=== PATIENT | male | born 1950 | race Caucasian/White ===

== ENCOUNTER 2016-06-16 13:51 | Emergency (ER) | payer OTHER ==
[2016-06-16] MEDS ORDERED: TETRACAINE HCL 0.5% OPH SOLN 2 ML OS ONE (14:14)
[2016-06-16] MEDS ORDERED: OXYCODONE-ACETAMINOPHEN 5-325 MG TABLET PO ONE (14:14)
[2016-06-16] MEDS ORDERED: ONDANSETRON 4 MG TAB.RAPDIS PO ONE (14:14)
--- NOTE | 2016-06-16 14:16 | ER Document Report ---
ED Medical Screen (RME) - General Chief Complaint: Eye Problem Stated Complaint: LEFT EYE IRRITATION, PAIN Time seen by provider: 14:15 Mode of Arrival: Ambulatory Information source: Patient Notes: 66-year-old male had something fly into his left eye when he was changing the belt on his riding lawnmower yesterday. It is very painful today. Questionable corneal defect at 6:00. TRAVEL OUTSIDE OF THE [place] IN LAST 30 DAYS: No Past Medical History - Past Medical History Cardiac Medical History: Reports: Hx Hypertension Renal/ Medical History: Denies: Hx Peritoneal Dialysis Physical Exam - Vital signs Vitals: Temp Pulse Resp BP Pulse Ox 98.2 F 60 18 161/82 H 97 06/16/16 14:09 06/16/16 14:09 06/16/16 14:09 06/16/16 14:09 06/16/16 14:09 Course - Vital Signs Vital signs: Temp Pulse Resp BP Pulse Ox 98.2 F 60 18 161/82 H 97 06/16/16 14:11 06/16/16 14:11 06/16/16 14:11 06/16/16 14:11 06/16/16 14:11
[2016-06-16] MEDS ORDERED: BESIFLOXACIN HCL 0.6% OPH SUSP 5 ML BOTTLE OS ONE (15:15)
[2016-06-16] MEDS ORDERED: KETOROLAC TROMETHAMINE 0.45% 4 DROP/0.4 ML DROPERETTE OS ONE (15:15)
--- NOTE | 2016-06-16 15:22 | ER Document Report ---
ED General - General Chief Complaint: Eye Problem Stated Complaint: LEFT EYE IRRITATION, PAIN Mode of Arrival: Ambulatory TRAVEL OUTSIDE OF THE [place] IN LAST 30 DAYS: No - HPI Patient complains to provider of: eye pain Onset: Yesterday Notes: Patient coming in states he would work on slow more was soft and hit him in left eye day prior to arrival. Patient states increased pain today. Denies contact use denies any other injuries. Past Medical History - General Information source: Patient - Social History Smoking Status: Current Every Day Smoker Family History: Reviewed & Not Pertinent - Past Medical History Cardiac Medical History: Reports: Hx Hypertension Renal/ Medical History: Denies: Hx Peritoneal Dialysis Surgical Hx: Negative Review of Systems - Review of Systems Constitutional: No symptoms reported EENT: Eye pain Cardiovascular: No symptoms reported Respiratory: No symptoms reported Gastrointestinal: No symptoms reported Genitourinary: No symptoms reported Male Genitourinary: No symptoms reported Musculoskeletal: No symptoms reported Skin: No symptoms reported Hematologic/Lymphatic: No symptoms reported Neurological/Psychological: No symptoms reported -: Yes All other systems reviewed and negative Physical Exam - Vital signs Vitals: Temp Pulse Resp BP Pulse Ox 98.2 F 60 18 161/82 H 97 06/16/16 14:09 06/16/16 14:09 06/16/16 14:09 06/16/16 14:09 06/16/16 14:09 Interpretation: Normal - General General appearance: Appears well, Alert - HEENT Head: Normocephalic, Atraumatic Eyes: Normal Conjunctiva: Normal Cornea: Normal Extraocular movements intact: Yes Eyelashes: Normal Pupils: PERRL Visual acuity- Right eye: 20/20 Visual acuity- Left eye: 20/20 Visual acuity- Both eyes: 20/20 Lids everted for exam: bilateral: Normal Anterior chamber: Normal Notes: Visual acuity perform by nurse using loli guide at [facility] - Respiratory Respiratory status: No respiratory distress Chest status: Nontender Breath sounds: Normal Chest palpation: Normal - Cardiovascular Rhythm: Regular Heart sounds: Normal auscultation Murmur: No - Abdominal Inspection: Normal Distension: No distension Bowel sounds: Normal Tenderness: Nontender Organomegaly: No organomegaly - Back Back: Normal, Nontender - Extremities General upper extremity: Normal inspection, Nontender, Normal color, Normal ROM , Normal temperature General lower extremity: Normal inspection, Nontender, Normal color, Normal ROM , Normal temperature, Normal weight bearing. No: Cathi's sign - Neurological Neuro grossly intact: Yes Cognition: Normal Orientation: AAOx4 Andreea Coma Scale Eye Opening: Spontaneous Eccles Coma Scale Verbal: Oriented Andreea Coma Scale Motor: Obeys Commands Andreea Coma Scale Total: 15 Speech: Normal Motor strength normal: LUE, RUE, LLE, RLE Sensory: Normal - Psychological Associated symptoms: Normal affect, Normal mood - Skin Skin Temperature: Warm Skin Moisture: Dry Skin Color: Normal Course - Re-evaluation Re-evalutation: 06/16/16 15:18 Patient with a corneal abrasion scleral abrasion. Patient has no foreign body no hyphema. Patient with good pain relief after tetracaine. Patient will be discharged home with Besivance and pain control. Patient to follow-up with ophthalmology. - Vital Signs Vital signs: Temp Pulse Resp BP Pulse Ox 98.2 F 60 18 161/82 H 97 06/16/16 14:11 06/16/16 14:11 06/16/16 14:11 06/16/16 14:11 06/16/16 14:11 Procedures - Eye Procedure Left Fluorescein applied: Left Slit lamp used: No Notes: 06/16/16 15:22 No foreign body seen no hyphema Eyes picture: 1 - Corneal abrasion 2 - Scleral abrasion Discharge - Discharge Clinical Impression: Corneal abrasion Qualifiers: Encounter type: initial encounter Laterality: left Qualified Code(s): S05.02XA - Injury of conjunctiva and corneal abrasion without foreign body, left eye, initial encounter Condition: Good Disposition: HOME, SELF-CARE Instructions: Corneal Abrasion ([facility]), Eyedrop Use ([facility]) Additional Instructions: Please use the antibiotic drops given to you here in the ER 1-2 drops in the left eye 3 times a day for 10 days Use of the medications as prescribed return to the ER symptoms worsen. Prescriptions: Hydrocodone Bit/Acetaminophen [Hydrocodon-Acetaminophen 5-325] 1 each PO Q6 #20 tablet Ketorolac Tromethamine 0.45% [Acuvail 0.45% Oph Soln 0.4 ml/Dropperette] 1 drop OD BID 5 Days Referrals: YUDY TILLEY MD [ACTIVE STAFF] - Follow up as needed
[2016-06-16 15:36] VITALS: BP 140/84
== END 2016-06-16 15:35 | disposition home or self-care (01) ==
LOC: ER 13:51
DX: S05.02XA Injury of conjunctiva and corneal abrasion without foreign body, left eye, initial encounter (principal); H57.12 Ocular pain, left eye; X58.XXXA Exposure to other specified factors, initial encounter
CPT/HCPCS: 99283; S0119

== ENCOUNTER 2016-10-28 13:38 | Observation (INO) | payer OTHER, MEDICARE ==
--- NOTE | 2016-10-28 14:12 | ER Document Report ---
ED Medical Screen (RME) - General Chief Complaint: Numbness Stated Complaint: POSSIBLE STROKE ALERT Time Seen by Provider: 10/28/16 13:59 TRAVEL OUTSIDE OF THE [place] IN LAST 30 DAYS: No - HPI Notes: 10/28/16 14:11 Numbness dizziness tingling placed left-sided weakness ongoing since 9:00 yesterday no new symptoms today Past Medical History - Past Medical History Cardiac Medical History: Reports: Hx Hypertension Renal/ Medical History: Denies: Hx Peritoneal Dialysis Review of Systems - Review of Systems Constitutional: Other - Tingling weakness Physical Exam - Vital signs Vitals: Temp Pulse Resp BP Pulse Ox 98.5 F 60 18 207/88 H 95 10/28/16 13:43 10/28/16 13:43 10/28/16 13:43 10/28/16 13:43 10/28/16 13:43 - Respiratory Respiratory status: No respiratory distress Chest status: Nontender Breath sounds: Normal Chest palpation: Normal Course - Re-evaluation Re-evalutation: 10/28/16 14:11 - Vital Signs Vital signs: Temp Pulse Resp BP Pulse Ox 98.5 F 60 18 207/88 H 95 10/28/16 13:43 10/28/16 13:43 10/28/16 13:43 10/28/16 13:43 10/28/16 13:43
[2016-10-28 14:30] LABS: ABSOLUTE BASOPHILS # (AUTO) 0.1 10^3/uL (0.0-0.2); ABSOLUTE EOSINOPHILS # (AUTO) 0.4 10^3/uL (0.0-0.6); ABSOLUTE LYMPHOCYTES (AUTO) 2.4 10^3/uL (0.5-4.7); ABSOLUTE MONOCYTES (AUTO) 0.6 10^3/uL (0.1-1.4); ABSOLUTE NEUT (AUTO) 4.9 10^3/uL (1.7-8.2); BASOPHILS % (AUTO) 1.1 % (0-2); EOSINOPHILS % (AUTO) 4.3 % (0-6); HEMATOCRIT 47.3 % (37.9-51.0); HEMOGLOBIN 15.8 g/dL (13.5-17.0); HGB HCT DIFFERENCE 0.1; LYMPHOCYTES % (AUTO) 28.3 % (13-45); MEAN CORPUSCULAR HEMOGLOBIN 31.6 pg (27.0-33.4); MEAN CORPUSCULAR HGB CONC 33.3 g/dL (32.0-36.0); MEAN CORPUSCULAR VOLUME 95 fl (80-97); RED BLOOD COUNT 4.98 10^6/uL (4.35-5.55); RED CELL DISTRIBUTION WIDTH 12.3 % (11.5-14.0); SEGMENTED NEUTROPHILS % (AUTO) 59.3 % (42-78); WHITE BLOOD COUNT 8.3 10^3/uL (4.0-10.5)
[2016-10-28 14:35] LABS: PROTHROMBIN TIME 11.7 SEC (11.4-15.4)
--- NOTE | 2016-10-28 14:44 | RADIOLOGY REPORT (SQ) ---
EXAM DESCRIPTION: CT HEAD WITHOUT COMPLETED DATE/TIME: 10/28/2016 2:35 pm REASON FOR STUDY: stroke? COMPARISON: None. TECHNIQUE: Axial images acquired through the brain without intravenous contrast. Images reviewed wi th bone, brain and subdural windows. Images stored on PACS. All CT scanners at this facility use dose modulation, iterative reconstruction, and/or weight based d osing when appropriate to reduce radiation dose to as low as reasonably achievable (ALARA). [facility]: Dose Right [facility]: CareDose [facility]: Dose Right [facility]: Teradose 4D [facility]: StockRadar RADIATION DOSE: 64.61 mGy. LIMITATIONS: None. FINDINGS: VENTRICLES: Normal size and contour. CEREBRUM: No masses. No hemorrhage. No midline shift. Normal rogers/white matter differentiation. N o evidence for acute infarction. CEREBELLUM: No masses. No hemorrhage. No alteration of density. No evidence for acute infarction. EXTRAAXIAL SPACES: No fluid collections. No masses. ORBITS AND GLOBE: No intra- or extraconal masses. Normal contour of globe without masses. CALVARIUM: No fracture. PARANASAL SINUSES: No fluid or mucosal thickening. SOFT TISSUES: No mass or hematoma. OTHER: No other significant finding. IMPRESSION: NORMAL BRAIN CT WITHOUT CONTRAST. TECHNICAL DOCUMENTATION: JOB ID: [id number] Quality ID # [id number]: Final reports with documentation of one or more dose reduction techniques (e.g., Au tomated exposure control, adjustment of the mA and/or kV according to patient size, use of iterative reconstruction technique) 2010 [employer]- All Rights Reserved
--- NOTE | 2016-10-28 14:44 | RADIOLOGY REPORT (SQ) ---
EXAM DESCRIPTION: CHEST PA/LAT COMPLETED DATE/TIME: 10/28/2016 2:37 pm REASON FOR STUDY: sob COMPARISON: None. EXAM PARAMETERS: NUMBER OF VIEWS: two views TECHNIQUE: Digital Frontal and Lateral radiographic views of the chest acquired. RADIATION DOSE: NA LIMITATIONS: none FINDINGS: LUNGS AND PLEURA: No opacities, masses or pneumothorax. No pleural effusion. MEDIASTINUM AND HILAR STRUCTURES: No masses or contour abnormalities. HEART AND VASCULAR STRUCTURES: Heart normal size. No evidence for failure. BONES: No acute findings. HARDWARE: None in the chest. OTHER: No other significant finding. IMPRESSION: NO SIGNIFICANT RADIOGRAPHIC FINDING IN THE CHEST. TECHNICAL DOCUMENTATION: JOB ID: [id number]- All Rights Reserved
[2016-10-28 14:46] LABS: ALANINE AMINOTRANSFERASE 26 U/L (21-72); ALKALINE PHOSPHATASE 90 U/L (38-126); ANION GAP 9 (5-19); ASPARTATE AMINO TRANSFERASE 24 U/L (17-59); BILIRUBIN,DIRECT 0.3 mg/dL (0.0-0.4); BILIRUBIN,TOTAL 0.8 mg/dL (0.2-1.3); BLOOD UREA NITROGEN 18 mg/dL (7-20); CALCIUM 9.7 mg/dL (8.4-10.2); CARBON DIOXIDE 27 mmol/L (22-30); CHLORIDE 104 mmol/L (98-107); CREATINE KINASE 39 U/L (55-170); CREATININE RESULT 1.02 mg/dL (0.52-1.25); GLUCOSE 91 mg/dL (75-110); POTASSIUM 4.8 mmol/L (3.6-5.0); SODIUM 139.7 mmol/L (137-145); TOTAL PROTEIN 7.3 g/dL (6.3-8.2)
[2016-10-28 14:58] LABS: CREATINE KINASE MB 0.93 ng/mL (<4.55)
[2016-10-28 14:59] LABS: TROPONIN I < 0.012 ng/mL
--- NOTE | 2016-10-28 15:14 | EKG REPORT ---
SEVERITY:- OTHERWISE NORMAL ECG - SINUS RHYTHM ATRIAL PREMATURE COMPLEX RIGHT AXIS DEVIATION : Confirmed by: Melissa Lanier 28-Oct-2016 15:14:12
--- NOTE | 2016-10-28 15:41 | ER Document Report ---
ED General - General Chief Complaint: Numbness Stated Complaint: POSSIBLE STROKE ALERT Time Seen by Provider: 10/28/16 13:59 Mode of Arrival: Ambulatory Information source: Patient Notes: This is a 66-year-old man with a history of hypertension, dyslipidemia, active smoking who presents to the emergency room with left facial numbness and left arm numbness. Patient denies any motor weakness. The onset of symptoms was 9 AM yesterday and has been constant TRAVEL OUTSIDE OF THE [place] IN LAST 30 DAYS: No - HPI Onset: Yesterday Onset/Duration: Sudden Quality of pain: No pain Severity: None Pain Level: Denies Associated symptoms: denies: Chest pain, Fever, Shortness of breath Exacerbated by: Denies Relieved by: Denies Similar symptoms previously: No Recently seen / treated by doctor: No - Related Data Allergies/Adverse Reactions: No Known Allergies Allergy (Unverified 10/28/16 15:46) Past Medical History - General Information source: Patient - Social History Smoking Status: Current Every Day Smoker Cigarette use (# per day): Yes - Half pack per day Chew tobacco use (# tins/day): - 30 Frequency of alcohol use: 3 beers a day Drug Abuse: None Lives with: Family Family History: Reviewed & Not Pertinent Patient has suicidal ideation: No Patient has homicidal ideation: No - Past Medical History Cardiac Medical History: Reports: Hx Hypercholesterolemia, Hx Hypertension Pulmonary Medical History: Reports: None EENT Medical History: Reports: None Neurological Medical History: Reports: None Endocrine Medical History: Reports: None Renal/ Medical History: Denies: Hx Peritoneal Dialysis Malignancy Medical History: Reports None GI Medical History: Reports: None Musculoskeltal Medical History: Reports None Skin Medical History: Reports None Psychiatric Medical History: Reports: None Traumatic Medical History: Reports: None Infectious Medical History: Reports: None Surgical Hx: Negative Review of Systems - Review of Systems Constitutional: denies: Chills, Fever EENT: No symptoms reported Cardiovascular: No symptoms reported Respiratory: No symptoms reported Gastrointestinal: No symptoms reported Genitourinary: No symptoms reported Male Genitourinary: No symptoms reported Musculoskeletal: No symptoms reported Skin: No symptoms reported Hematologic/Lymphatic: No symptoms reported Neurological/Psychological: See HPI Physical Exam - Vital signs Vitals: Temp Pulse Resp BP Pulse Ox 98.5 F 60 18 207/88 H 95 10/28/16 13:43 10/28/16 13:43 10/28/16 13:43 10/28/16 13:43 10/28/16 13:43 Notes: Physical exam: GENERAL: 6-year-old man, alert and oriented 3, no acute distress HEAD: Atraumatic, normocephalic. EYES: Pupils equal round and reactive to light, extraocular movements intact, sclera anicteric, conjunctiva are normal. ENT: TMs normal, nares patent, oropharynx clear without exudates. Moist mucous membranes. NECK: Normal range of motion, supple without lymphadenopathy or JVD. LUNGS: Breath sounds clear to auscultation bilaterally and equal. No wheezes rales or rhonchi. HEART: Regular rate and rhythm without murmurs, rubs or gallops. ABDOMEN: Soft, normoactive bowel sounds. No tenderness to palpation. No guarding, no rebound. No masses appreciated. EXTREMITIES: Normal range of motion, no pitting or edema. No clubbing or cyanosis. NEUROLOGICAL: Cranial nerves II through XII grossly intact for left facial numbness. Patient does have numbness to the left upper extremity. Motor is 5/ 5 upper and lower, cerebellar is good, reflexes are symmetrical, gait is normal. NIH is 1 PSYCH: Normal mood, normal affect. SKIN: Warm, Dry, normal turgor, no rashes or lesions noted. Course - Re-evaluation Re-evalutation: 10/28/16 15:40 Presents with symptoms of stroke. NIH is 1 based upon sensory disturbance. The patient does not meet criteria for thrombolysis based upon the low NIH score and an onset greater than 24 hours ago. - Vital Signs Vital signs: Temp Pulse Resp BP Pulse Ox 98.2 F 50 L 16 170/64 H 97 10/28/16 17:40 10/28/16 18:46 10/28/16 18:46 10/28/16 18:46 10/28/16 18:46 - Laboratory Result Diagrams: 10/28/16 14:20 10/28/16 14:20 Laboratory results interpreted by me: 10/28/16 14:20 Creatine Kinase 39 L - Diagnostic Test Radiology reviewed: Image reviewed, Reports reviewed - There is no acute stroke. Critical Care Note - Critical Care Note Total time excluding time spent on procedures (mins): 60 Discharge - Discharge Clinical Impression: CVA Condition: Stable Disposition: ADMITTED INPATIENT Unit Admitted: JOHN Garcia
[2016-10-28] MEDS ORDERED: ASPIRIN 81 MG TABLET, CHEWABLE PO ONE (15:46)
[2016-10-28] MEDS ORDERED: ACETAMINOPHEN 325 MG TABLET PO PRN (16:16)
[2016-10-28] MEDS ORDERED: ONDANSETRON 4 MG TAB.RAPDIS PO PRN (16:16)
[2016-10-28] MEDS ORDERED: AMLODIPINE BESYLATE 5 MG TABLET PO ONE (16:23)
--- NOTE | 2016-10-28 16:31 | PDOC H&P ---
History of Present Illness Admission Date/PCP: OLIVIA PATTERSON MD Patient complains of: Left arm and facial numbness since Saturday. History of Present Illness: YANCI JANE is a 66 year old male history of tobacco abuse and hypertension for which he does not take medications who presents with a 2 day history of left arm and facial numbness. Patient reports that he woke up Saturday morning around 10 AM and had some numbness in his left face and lips. It then progressed to involve his tongue and his entire left side of his face. He took aspirin at that time and did nothing. Patient had progression of his symptoms this morning when he woke up his left hand was numb but denies any weakness. He denies any visual changes. Denies any dysarthria or dysphasia. Denies any involvement of his lower extremities. Patient denies any pain in his neck. He denies any trauma. Denies any headache, fevers or chills. Patient had a head CT in the emergency room which was negative for any acute CVA. He is outside of the window for any type of thrombolytic therapy. Past Medical History Cardiac Medical History: Reports: Hypertension Pulmonary Medical History: Reports: None EENT Medical History: Reports: None Neurological Medical History: Reports: None Endocrine Medical History: Reports: None Renal/ Medical History: Reports: None Malignancy Medical History: Reports: Other - Prostate cancer with radiation therapy GI Medical History: Reports: None Skin Medical History: Reports: None Psychiatric Medical History: Reports: None Hematology: Reports: None Infectious Medical History: Reports: None Past Surgical History Past Surgical History: Reports: Other - Right hand surgery for traumatic injury Social History Information Source: Patient Lives with: Spouse/Significant other Smoking Status: Current Every Day Smoker Frequency of Alcohol Use: Social Hx Recreational Drug Use: No Drugs: None Hx Prescription Drug Abuse: No - Advance Directive Resuscitation Status: Full Code Surrogate healthcare decision maker:: His Family History Family History: Father at age 75 with an aneurysm of the brain. Mother in her 70s from COPD Parental Family History Reviewed: Yes Children Family History Reviewed: No Sibling(s) Family History Reviewed.: No Medication/Allergy Home Medications: Cephalexin Monohydrate [Keflex 500 mg Capsule] 500 mg PO QID #40 capsule Oxycodone HCl/Acetaminophen [Percocet 5-325 mg Tablet] 1 - 2 tab PO ASDIR PRN # 25 tablet 12/15/15 Hydrocodone Bit/Acetaminophen [Hydrocodon-Acetaminophen 5-325] 1 each PO Q6 #20 tablet 06/16/16 Ketorolac Tromethamine 0.45% [Acuvail 0.45% Oph Soln 0.4 ml/Dropperette] 1 drop OD BID 5 Days 06/16/16 Allergies/Adverse Reactions: No Known Allergies Allergy (Unverified 10/28/16 15:46) Review of Systems Constitutional: ABSENT: chills, fever(s), headache(s), weight gain, weight loss Eyes: ABSENT: visual disturbances Ears: ABSENT: hearing changes Cardiovascular: ABSENT: chest pain, dyspnea on exertion, edema, orthropnea, palpitations Respiratory: ABSENT: cough, hemoptysis Gastrointestinal: ABSENT: abdominal pain, constipation, diarrhea, hematemesis, hematochezia, nausea, vomiting Genitourinary: ABSENT: dysuria, hematuria Musculoskeletal: ABSENT: joint swelling Integumentary: ABSENT: rash, wounds Neurological: PRESENT: as per HPI Psychiatric: ABSENT: anxiety, depression Endocrine: ABSENT: cold intolerance, heat intolerance, polydipsia, polyuria Hematologic/Lymphatic: ABSENT: easy bleeding, easy bruising Physical Exam Vital Signs: Temp Pulse Resp BP Pulse Ox 98.5 F 60 18 207/88 H 98 10/28/16 13:44 10/28/16 14:00 10/28/16 14:00 10/28/16 14:00 10/28/16 14:22 Intake & Output 10/27/16 10/28/16 10/29/16 06:59 06:59 06:59 Weight 92.3 kg General appearance: PRESENT: no acute distress, well-developed, well-nourished Head exam: PRESENT: atraumatic, normocephalic Eye exam: PRESENT: conjunctiva pink, EOMI, PERRLA. ABSENT: scleral icterus Ear exam: PRESENT: normal external ear exam Mouth exam: PRESENT: moist, tongue midline Neck exam: ABSENT: carotid bruit, JVD, lymphadenopathy, thyromegaly Respiratory exam: PRESENT: clear to auscultation dena. ABSENT: rales, rhonchi, wheezes Cardiovascular exam: PRESENT: RRR. ABSENT: diastolic murmur, rubs, systolic murmur Pulses: PRESENT: normal dorsalis pedis pul Vascular exam: PRESENT: normal capillary refill GI/Abdominal exam: PRESENT: normal bowel sounds, soft. ABSENT: distended, guarding, mass, organolmegaly, rebound, tenderness Rectal exam: PRESENT: deferred Extremities exam: ABSENT: calf tenderness, clubbing, pedal edema Neurological exam: PRESENT: alert, awake, oriented to person, oriented to place , oriented to time, oriented to situation, CN II-XII grossly intact, motor sensory deficit - Patient has decreased light touch in the left face and left arm. Psychiatric exam: PRESENT: appropriate affect, normal mood Skin exam: PRESENT: dry, intact, warm. ABSENT: cyanosis, rash Results Laboratory Results: 10/28/16 14:20 10/28/16 14:20 10/28/16 10/28/16 14:20 14:20 WBC 8.3 RBC 4.98 Hgb 15.8 Hct 47.3 MCV 95 MCH 31.6 MCHC 33.3 RDW 12.3 Plt Count 283 Seg Neutrophils % 59.3 Lymphocytes % 28.3 Monocytes % 7.0 Eosinophils % 4.3 Basophils % 1.1 Absolute Neutrophils 4.9 Absolute Lymphocytes 2.4 Absolute Monocytes 0.6 Absolute Eosinophils 0.4 Absolute Basophils 0.1 Sodium 139.7 Potassium 4.8 Chloride 104 Carbon Dioxide 27 Anion Gap 9 BUN 18 Creatinine 1.02 Est GFR ( Amer) > 60 Est GFR (Non-Af Amer) > 60 Glucose 91 Calcium 9.7 Total Bilirubin 0.8 AST 24 ALT 26 Alkaline Phosphatase 90 Total Protein 7.3 Albumin 4.0 10/28/16 10/28/16 14:20 14:20 Creatine Kinase 39 L CK-MB (CK-2) 0.93 Troponin I < 0.012 Impressions: Head CT 10/28/16 14:00 IMPRESSION: NORMAL BRAIN CT WITHOUT CONTRAST. Chest X-Ray 10/28/16 14:03 IMPRESSION: NO SIGNIFICANT RADIOGRAPHIC FINDING IN THE CHEST. Assessment & Plan - Diagnosis (1) CVA (cerebral vascular accident) Is this a current diagnosis for this admission?: YesPlan: Patient has had symptoms for greater than 24 hours. We will continue with the aspirin that he started with his symptoms started. Will obtain an MRI, carotid Doppler, echocardiogram. Will also start on Lipitor. Encouraged to quit smoking to help reduce his risk of recurrence. (2) Hypertension Is this a current diagnosis for this admission?: YesPlan: We will start Norvasc - Time Time Spent: 50 to 70 Minutes - Inpatient Certification Medical Necessity: Need for Neurological Checks - Plan Summary Plan Summary: Admit as observation as I anticipate this will require less than a 2 midnight hospital stay.
[2016-10-28] MEDS ORDERED: ATORVASTATIN CALCIUM 40 MG TABLET PO SCH (22:00)
[2016-10-29] MEDS ORDERED: HYDRALAZINE HCL INJ/PF 20 MG/1 ML SDV IV PRN (03:45)
[2016-10-29 06:13] LABS: HEMATOCRIT 44.5 % (37.9-51.0); HGB HCT DIFFERENCE 0.5; MEAN CORPUSCULAR HEMOGLOBIN 31.7 pg (27.0-33.4); MEAN CORPUSCULAR HGB CONC 33.7 g/dL (32.0-36.0); MEAN CORPUSCULAR VOLUME 94 fl (80-97); RED BLOOD COUNT 4.73 10^6/uL (4.35-5.55); RED CELL DISTRIBUTION WIDTH 12.6 % (11.5-14.0)
[2016-10-29 06:26] LABS: ANION GAP 11 (5-19); BLOOD UREA NITROGEN 22 mg/dL (7-20); CALCIUM 9.3 mg/dL (8.4-10.2); CARBON DIOXIDE 25 mmol/L (22-30); CHLORIDE 105 mmol/L (98-107); CHOLESTEROL 227.04 mg/dL (0-200); CREATININE RESULT 0.98 mg/dL (0.52-1.25); Direct HDL 65 mg/dL (>40); GLUCOSE 88 mg/dL (75-110); POTASSIUM 4.3 mmol/L (3.6-5.0); SODIUM 140.5 mmol/L (137-145); TRIGLYCERIDES 131 mg/dL (<150)
[2016-10-29 06:37] LABS: DIRECT LDL 134 mg/dL (<100)
[2016-10-29] MEDS ORDERED: ASPIRIN 81 MG TABLET, ENT COATED PO SCH (10:00)
[2016-10-29] MEDS ORDERED: LORAZEPAM 1 MG TABLET PO ONE ×2 (10:00→15:00)
[2016-10-29] MEDS ORDERED: LORAZEPAM 1 MG TABLET ONE (14:37)
--- NOTE | 2016-10-29 15:25 | RADIOLOGY REPORT (SQ) ---
EXAM DESCRIPTION: CAROTID DOPPLER COMPLETED DATE/TIME: 10/29/2016 2:36 pm REASON FOR STUDY: cva COMPARISON: CT brain 10/28/2016 TECHNIQUE: Grayscale ultrasound, Doppler velocity and spectra, and color Doppler images acquired of the extra-cranial carotid and vertebral arteries. Images stored on PACS. LIMITATIONS: None. FINDINGS: RIGHT CAROTID CCA Velocities: Within normal limits. ICA Velocities Peak systolic 0.85 m/s. End diastolic 0.25 m/s. Proximal ICA/CCA peak systolic ratio 1.3. Spectra normal. Minimal non calcific plaque at the right proximal ICA without flow significant steno sis. LEFT CAROTID CCA Velocities: Within normal limits. Mild soft plaque in the left common carotid artery without krystin w significant stenosis ICA Velocities Peak systolic 0.65 m/s. End diastolic 0.13 m/s. Proximal ICA/CCA peak systolic ratio 0.6. Spectra normal. Mixed calcific and noncalcific plaque at the left proximal ICA without flow signific ant stenosis. VERTEBRAL ARTERIES: Antegrade flow. Normal waveforms. SUBCLAVIAN ARTERIES: Not examined OTHER: No other significant finding. IMPRESSION: NO HEMODYNAMICALLY SIGNIFICANT STENOSIS. COMMENT: Quality ID #[id number]: Velocity criteria are extrapolated from the diameter data as defined by t he Society of Radiologists in Ultrasound Consensus Conference. Radiology 2003: 229; 340-346. TECHNICAL DOCUMENTATION: JOB ID: [id number] [employer]- All Rights Reserved
[2016-10-29 17:29] VITALS: BP 186/74
--- NOTE | 2016-10-29 17:49 | PDOC DISCHARGE SUMMARY ---
General - Admit/Disc Date/PCP Admission Date/Primary Care Provider: 10/28/16 16:16 OLIVIA PATTERSON MD Discharge Date: 10/29/16 - Discharge Diagnosis (1) CVA (cerebral vascular accident) Is this a current diagnosis for this admission?: YesSummary: Patient was unable to complete the MRI secondary to severe anxiety (2) Hypertension Is this a current diagnosis for this admission?: Yes - Additional Information Resuscitation Status: Full Code Discharge Diet: Cardiac Discharge Activity: Activity As Tolerated Home Medications: Amlodipine Besylate [Norvasc 5 mg Tablet] 5 mg PO DAILY #30 tablet 10/29/16 Aspirin [Ecotrin 81 mg EC Tablet] 81 mg PO DAILY tabec 10/29/16 Atorvastatin Calcium [Lipitor 40 mg Tablet] 40 mg PO QHS #30 tablet 10/29/16 History of Present Illness History of Present Illness: YANCI JANE is a 66 year old male history of tobacco abuse and hypertension for which he does not take medications who presents with a 2 day history of left arm and facial numbness. Patient reports that he woke up Saturday morning around 10 AM and had some numbness in his left face and lips. It then progressed to involve his tongue and his entire left side of his face. He took aspirin at that time and did nothing. Patient had progression of his symptoms this morning when he woke up his left hand was numb but denies any weakness. He denies any visual changes. Denies any dysarthria or dysphasia. Denies any involvement of his lower extremities. Patient denies any pain in his neck. He denies any trauma. Denies any headache, fevers or chills. Patient had a head CT in the emergency room which was negative for any acute CVA. He is outside of the window for any type of thrombolytic therapy. Hospital Course Hospital Course: The 6-year-old male who presented with left facial and left arm numbness. The patient had a normal head CT but it is presumed that this represented an acute CVA. Patient has had these symptoms for greater than 24 hours and he presented. Patient had carotid Dopplers that were normal. Echocardiogram has been done but is pending results at this time. He was unable to complete the MRI secondary to severe anxiety in spite of taking Ativan he was unable to go through with MRI. Patient has been started on aspirin, Lipitor, Norvasc. Physical Exam Vital Signs: Temp Pulse Resp BP Pulse Ox 97.6 F 58 L 18 186/74 H 96 10/29/16 17:25 10/29/16 17:25 10/29/16 17:25 10/29/16 17:25 10/29/16 17:25 Intake & Output 10/28/16 10/29/16 10/30/16 06:59 06:59 06:59 Intake Total 308 780 Output Total 400 Balance 308 380 Weight 92 kg General appearance: PRESENT: no acute distress Eye exam: PRESENT: conjunctiva pink. ABSENT: scleral icterus Mouth exam: PRESENT: moist, tongue midline Neck exam: ABSENT: JVD Respiratory exam: PRESENT: clear to auscultation dena. ABSENT: rales, rhonchi, wheezes Cardiovascular exam: PRESENT: RRR. ABSENT: diastolic murmur, rubs, systolic murmur GI/Abdominal exam: PRESENT: normal bowel sounds, soft. ABSENT: distended, guarding, mass, organolmegaly, rebound, tenderness Extremities exam: ABSENT: calf tenderness, clubbing, pedal edema Neurological exam: PRESENT: alert, awake, oriented to person, oriented to place , oriented to time, oriented to situation, CN II-XII grossly intact, motor sensory deficit - Decreased light touch on the left side of his face as well as his left arm Psychiatric exam: PRESENT: appropriate affect Skin exam: PRESENT: dry, intact, warm. ABSENT: cyanosis, rash Results Laboratory Results: 10/29/16 05:51 10/29/16 05:51 10/29/16 10/29/16 05:51 05:51 WBC 9.0 RBC 4.73 Hgb 15.0 Hct 44.5 MCV 94 MCH 31.7 MCHC 33.7 RDW 12.6 Plt Count 230 Sodium 140.5 Potassium 4.3 Chloride 105 Carbon Dioxide 25 Anion Gap 11 BUN 22 H Creatinine 0.98 Est GFR ( Amer) > 60 Est GFR (Non-Af Amer) > 60 Glucose 88 Calcium 9.3 Triglycerides 131 Cholesterol 227.04 H LDL Cholesterol Direct 134 H VLDL Cholesterol 26.0 HDL Cholesterol 65 10/28/16 18:37 Troponin I < 0.012 Impressions: Head CT 10/28/16 14:00 IMPRESSION: NORMAL BRAIN CT WITHOUT CONTRAST. Chest X-Ray 10/28/16 14:03 IMPRESSION: NO SIGNIFICANT RADIOGRAPHIC FINDING IN THE CHEST. Carotid Doppler Study 10/29/16 00:00 IMPRESSION: NO HEMODYNAMICALLY SIGNIFICANT STENOSIS. Qualifiers PATEINT BEING DISCHARGED WITH ANY OF THE FOLLOWING DIAGNOSIS?: Stroke Stroke Pt being discharged on Anti-thrombolytic therapy?: Yes Stroke Pt being discharged on Anti-coagulation therapy?: No Reason(s) for not prescribing Anti-coagulation therapy:: Not indicated Stroke Pt being discharged on Statins?: Yes Plan Discharge Plan: Home in stable condition. Will follow up with primary care doctor in 2 weeks. He is instructed to quit smoking. Time Spent: Less than 30 Minutes
--- NOTE | 2016-10-29 18:26 | XCELERA REPORT ---
[address] [address] Transthoracic Echocardiogram Report Name: YANCI JANE Age: 66 yrs Gender: Male : 1950 Patient Status: Inpatient Patient Location: [id number]\S\335\S\A Study Date: 10/29/2016 01:23 PM Height: 72 in Weight: 203 lb BSA: 2.1 m2 Procedure: A two-dimensional transthoracic echocardiogram with color flow and Doppler was performed. The study was technically difficult with many images being suboptimal in quality. Reason For Study: cva History: CVA. Ordering Physician: YIFAN ERVIN Performed By: Geovani Flynn Interpretation Summary There is no obvious cardiac source of embolus noted on this transthoracic echocardiogram. Follow-up with a [facility] is suggested if cardiac source is still suspected. The left ventricle is normal in size. There is mild concentric left ventricular hypertrophy. LV EF is 65% Left ventricular systolic function is normal. Doppler measurements suggest impaired left ventricular relaxation, which is associated with grade I/IV or mild diastolic dysfunction The left ventricular wall motion is normal. There is no thrombus. There is no ventricular septal defect visualized. The right ventricle is normal in size and function. The right atrium is normal. The left atrial size is normal. The interatrial septum is intact with no evidence for an atrial septal defect. There is no evidence of mitral valve prolapse. There is no vegetation seen on the mitral valve. There is no mitral valve stenosis. There is no mitral regurgitation noted. There is no aortic valvular vegetation. There is no aortic valve stenosis There is no LVOT obstruction. There iis Aortic Sclerosis without stenosis. No aortic regurgitation is present. There is no tricuspid stenosis. There is a trace amount of tricuspid regurgitation Right ventricular systolic pressure is normal. RVSP is 14 to 19 mm of Hg , with RA mean of 5 to 10. There is no pulmonic valvular stenosis. There is a trace amount of pulmonic regurgitation The inferior vena cava appeared normal and decreased > 50% with respiration (RAP 5-10 mmHg) There is no pericardial effusion. There is no obvious cardiac source of embolus noted on this transthoracic echocardiogram. Follow-up with a [facility] is suggested if cardiac source is still suspected MMode/2D Measurements \T\ Calculations RVDd: 2.7 cm LVIDd: 4.8 cm FS: 38.2 % Ao root diam: 3.5 cm IVSd: 1.2 cm LVIDs: 3.0 cm EDV(Teich): 109.5 ml LVPWd: 1.2 cm ESV(Teich): 34.8 ml Ao root area: 9.5 cm2 EF(Teich): 68.2 % LA dimension: 3.5 cm Doppler Measurements \T\ Calculations MV E max ra: MV P1/2t max ra: Ao V2 max: LV V1 max P.8 cm/sec 59.6 cm/sec 137.1 cm/sec 4.4 mmHg MV A max ra: MV P1/2t: 81.4 msec Ao max PG: LV V1 max: 73.7 cm/sec 7.5 mmHg 105.3 cm/sec MV E/A: 0.73 MVA(P1/2t): 2.7 cm2 MV dec slope: 214.7 cm/sec2 PA V2 max: PI end-d ra: TR max ra: RAP systole: 79.5 cm/sec 73.8 cm/sec 149.7 cm/sec 10.0 mmHg PA max PG: TR max P.5 mmHg 9.0 mmHg RVSP(TR): 19.0 mmHg Left Ventricle The left ventricle is normal in size. There is mild concentric left ventricular hypertrophy. LV EF is 65%. Left ventricular systolic function is normal. Doppler measurements suggest impaired left ventricular relaxation, which is associated with grade I/IV or mild diastolic dysfunction. The left ventricular wall motion is normal. There is no thrombus. There is no ventricular septal defect visualized. Right Ventricle The right ventricle is normal in size and function. Atria The right atrium is normal. The left atrial size is normal. The interatrial septum is intact with no evidence for an atrial septal defect. Mitral Valve There is no evidence of mitral valve prolapse. There is no vegetation seen on the mitral valve. There is no mitral valve stenosis. There is no mitral regurgitation noted. Aortic Valve The aortic valve is trileaflet. The aortic valve opens well. There is no aortic valvular vegetation. There is no aortic valve stenosis. There is no LVOT obstruction. There iis Aortic Sclerosis without stenosis. No aortic regurgitation is present. Tricuspid Valve There is no tricuspid stenosis. There is a trace amount of tricuspid regurgitation. Right ventricular systolic pressure is normal. RVSP is 14 to 19 mm of Hg , with RA mean of 5 to 10. Pulmonic Valve There is no pulmonic valvular stenosis. There is a trace amount of pulmonic regurgitation. Great Vessels The aortic root is normal size. The inferior vena cava appeared normal and decreased > 50% with respiration (RAP 5-10 mmHg). Effusions There is no pericardial effusion. : YIFAN ERVIN > Brianna Garcia
== END 2016-10-29 17:48 | disposition home or self-care (01) ==
LOC: ER 13:38 → EH 16:16 → 3S 17:50
PROVIDERS: ADMIT Internal Medicine; ATTEND Internal Medicine
DX: I63.9 Cerebral infarction, unspecified (principal); G81.94 Hemiplegia, unspecified affecting left nondominant side; R20.0 Anesthesia of skin; R20.2 Paresthesia of skin; F41.9 Anxiety disorder, unspecified; Z53.8 Procedure and treatment not carried out for other reasons; I10 Essential (primary) hypertension; E78.5 Hyperlipidemia, unspecified; F17.210 Nicotine dependence, cigarettes, uncomplicated; Z85.46 Personal history of malignant neoplasm of prostate; Z92.3 Personal history of irradiation; Z82.49 Family history of ischemic heart disease and other diseases of the circulatory system
CPT/HCPCS: 93005; 99291; 36415 ×2; 82553; 82550; 85025; 85027; 85610; 80048; 80053; 84484; 80061; 93306; 93880; 71020; 70450; 93010; 97163; 92610; 97167; J0360; J3490 ×2; G8978; G8979; G8980; G8996; G8997; G8998; G8987; G8988; G8989; G0378